=== PATIENT | female | born 1985 | race Caucasian/White ===

== ENCOUNTER 2016-04-29 19:28 | Outpatient (CLI) | payer OTHER ==
[2016-04-29 20:35] VITALS: BP 111/68
== END 2016-04-29 22:06 | disposition home or self-care (01) ==
LOC: TRG 19:28
PROVIDERS: ATTEND Specialist
DX: O36.8130 Decreased fetal movements, third trimester, not applicable or unspecified (principal); O62.0 Primary inadequate contractions; O77.9 Labor and delivery complicated by fetal stress, unspecified; Z3A.37 37 weeks gestation of pregnancy
CPT/HCPCS: 59025

== ENCOUNTER 2016-05-02 04:52 | Inpatient (IN) | payer OTHER ==
[2016-05-02] MEDS ORDERED: LACTATED RINGERS 2,000 ML ONE (05:05)
[2016-05-02] MEDS ORDERED: LACTATED RINGERS 1,000 ML IV SCH (06:00)
[2016-05-02 06:28] LABS: Basophils % (Auto) 0.2 % (0.0-1.8); Eosinophils % (Auto) 0.6 % (0.0-4.3); Hematocrit 35.1 % (30.3-42.9); Hemoglobin 11.6 gm/dl (10.1-14.3); Mean Corpuscular HGB Conc 33 % (30-34); Mean Corpuscular Hemoglobin 29 pg (28-32); Mean Corpuscular Volume 89 fl (79-97); Platelet Count 277 K/mm3 (140-440); Red Blood Count 3.94 M/mm3 (3.65-5.03); Red Cell Distribution Width 14.1 % (13.2-15.2); White Blood Count 9.9 K/mm3 (4.5-11.0)
[2016-05-02] MEDS ORDERED: REGLAN ONE (06:35)
[2016-05-02] MEDS ORDERED: ANCEF/STERILE WATER 2 GM/20 ML 20 ML IV ONE (06:35)
[2016-05-02] MEDS ORDERED: PEPCID IV ONE ×2 (06:36→09:07)
[2016-05-02] MEDS ORDERED: PITOCin/NS 20 UNIT/1000ML DRIP 1,000 ML IV ONE ×2 (06:37→09:04)
[2016-05-02] MEDS ORDERED: BICITRA ONE (07:12)
--- NOTE | 2016-05-02 07:23 | Anesthesia Consultation ---
Anesthesia Consult and Med Hx Date of service: 05/02/16 - Airway Anesthetic Teeth Evaluation: Good ROM Head & Neck: Adequate Mental/Hyoid Distance: Adequate Mallampati Class: Class II Intubation Access Assessment: Probably Good - Pulmonary Exam CTA: Yes - Cardiac Exam Cardiac Exam: RRR - Pre-Operative Health Status ASA Pre-Surgery Classification: ASA2 Proposed Anesthetic Plan: Epidural, Spinal - Pulmonary Hx Asthma: No COPD: No Hx Pneumonia: No - Cardiovascular System Hx Hypertension: No - Central Nervous System Hx Seizures: No Hx Psychiatric Problems: No - Endocrine Hx Renal Disease: No Hx End Stage Renal Disease: No Hx Hypothyroidism: No Hx Hyperthyroidism: No - Hematic Hx Anemia: No Hx Sickle Cell Disease: No - Other Systems Hx Alcohol Use: No
--- NOTE | 2016-05-02 07:23 | Anesthesia Day of Surgery ---
Anesthesia Day of Surgery - Day of Surgery Patient Examined: Yes Patient H&P Reviewed: Yes Patient is NPO: Yes
[2016-05-02] MEDS ORDERED: MORPHINE ONE (07:31)
[2016-05-02] MEDS ORDERED: WATER FOR IRRIG STERILE IR ONE (07:54)
[2016-05-02] MEDS ORDERED: NACL 0.9% IR ONE (07:54)
[2016-05-02] MEDS ORDERED: ZOFRAN ONE (08:05)
[2016-05-02] MEDS ORDERED: ZOFRAN IV PRN ×2 (08:46→10:29)
[2016-05-02] MEDS ORDERED: PHENERGAN PO PRN (08:46)
[2016-05-02] MEDS ORDERED: NARCAN 0.4 MG/1 ML IV PRN ×2 (08:46→10:29)
[2016-05-02] MEDS ORDERED: PHENERGAN PR PRN (08:46)
--- NOTE | 2016-05-02 08:50 | Post Anesthesia Evaluation ---
- Post Anesthesia Evaluation Patient Participated: Yes Airway Patent: Yes Stable Respiratory Function: Yes Nausea/Vomiting: No Temp > 96.8F: Yes Pain Manageable: Yes Adequeate Hydration: Yes Anesthesia Complications: No Block Receding Appropriately: Yes Patient on Ventilator: No
--- NOTE | 2016-05-02 08:52 | History and Physical Report ---
History of Present Illness Date of examination: 05/02/16 Date of admission: 05/02/16 06:45 Chief complaint: I'm in labor History of present illness: Patient is a 30 year old female who is non Wolof speaking, and presents to L&D with c/o contractions. While in triage, patient had cervical change. She was scheduled for repeat on 05/18/16. She received care but records are not available at this time Past History Past Medical History: no pertinent history Past Surgical History: section - Obstetrical History Expected Date of Delivery: 05/24/16 Actual Gestation: 36 Week(s) 6 Day(s) : 5 Medications and Allergies Allergies Allergy/AdvReac Type Severity Reaction Status Date / Time No Known Allergies Allergy Verified 06/15/14 05:01 Home Medications Medication Instructions Recorded Confirmed Last Taken Type Ferrous Sulfate [Feosol 325 MG tab] 325 mg PO BID #60 tablet 06/15/14 Unknown Rx HYDROcodone/APAP 5-325 [[place] 1 each PO Q6HR PRN #30 tablet 06/15/14 Unknown Rx 5-325 mg TAB] Ibuprofen [Motrin] 800 mg PO Q8H PRN #30 tablet 06/15/14 Unknown Rx Tmb205/Iron Fumarate/FA/Dss 1 each PO QDAY #30 tablet 06/15/14 Unknown Rx [ 19 Tablet] Active Meds: Active Medications Lactated Ringer's (Lactated Ringers) 1,000 mls @ 125 mls/hr IV DIRECT MAMTA Review of Systems All systems: negative Genitourinary: leakage of fluid, contractions - Vital Signs Vital signs: Vital Signs Pulse Pulse Ox 108 H 98 05/02/16 05:04 05/02/16 05:04 Temp Pulse Resp BP Pulse Ox 98.4 F 108 H 18 103/71 99 05/02/16 05:15 05/02/16 05:15 05/02/16 05:15 05/02/16 05:15 05/02/16 05:15 - Physical Exam Breasts: Positive: deferred Cardiovascular: Regular rate, Normal S1, Normal S2 Lungs: Positive: Clear to auscultation Abdomen: Positive: normal appearance, soft, normal bowel sounds Genitourinary (Female): Positive: normal external genitalia, normal perenium Uterus: Positive: normal size, normal contour - Obstetrical FHR: auscultation normal Cervical Dilatation: 3 Cervical Effacement Percentage: 90 Uterine Contraction Pattern: Regular Uterine Tone Measurement Phase: Contraction Uterine Contraction Intensity: Moderate Results Result Diagrams: 05/02/16 05:35 Abnormal lab results 05/02/16 Range/Units 05:35 [place] % (Auto) 7.7 H (0.0-7.3) % All other labs normal. Assessment and Plan IUP at 36.6 weeks in active labor but repeat . Patient also has tubal papers that are signed and on the chart. Will proceed with repeat x 5 with tubal ligation.
[2016-05-02] MEDS ORDERED: LANSINOH TP PRN (10:29)
[2016-05-02] MEDS ORDERED: SODIUM CHLORIDE FLUSH SYRINGE 10 ML IV NR (10:29)
[2016-05-02] MEDS ORDERED: MORPHINE IV PRN (10:29)
[2016-05-02] MEDS ORDERED: TUCKS PAD TP PRN (10:29)
[2016-05-02] MEDS ORDERED: PITOCin/NS 20 UNIT/1000ML DRIP 1,000 ML IV SCH (10:29)
[2016-05-02] MEDS: TORADOL IV PRN ×2 (10:41→17:38)
[2016-05-02] MEDS: PRENATAL VITAMIN PO SCH (10:42)
[2016-05-02] MEDS: LACTATED RINGERS 1,000 ML IV SCH ×2 (11:00→20:30)
--- NOTE | 2016-05-02 13:02 | Operative Report ---
PREOPERATIVE DIAGNOSES: 1. Previous section. 2. Undesired fertility. POSTOPERATIVE DIAGNOSIS: 1. Previous section. 2. Undesired fertility. PROCEDURE: Repeat low-transverse section with bilateral tubal ligation. SURGEON: Cherise Brewer MD ANESTHESIA: Spinal epidural. ESTIMATED BLOOD LOSS: 600 mL. IV FLUIDS: 1000 mL. URINE OUTPUT: 200 mL clear at the end of the procedure. FINDINGS: Viable male , weighed 7 pounds 2 ounces, 3243 g, Apgars 8 and 9. DESCRIPTION OF PROCEDURE: The patient was taken to the OR with IV running in place. She was appropriately identified as herself. She was initially scheduled for a section on 05/18/2016; however, went into labor on 05/02/2016. A spinal epidural was placed without difficulty. She was then prepped and draped in normal sterile fashion. A Jasso catheter was inserted. The Allis test confirmed adequate anesthesia. A Pfannenstiel incision was then made with the scalpel just above the area of her previous incision and carried through the underlying fascia using the scalpel and the Bovie. The fascia was incised longitudinally as there were multiple layers adhesed together. Once at the muscle layer, the fascia was dissected from the underlying muscles with mostly sharp dissection. This was done superiorly and inferiorly. The muscles were entered in two or three small defects superiorly. Rectus muscles were incised using the Bazzi scissors. Once inside the peritoneal cavity, large vessels were traversing the area between the bladder and the uterine wall. Therefore, the decision was made to make a high transverse uterine incision just above the typical original lower uterine segment. Of note, this area was also exceedingly thin and it looked to be entered into quite easily. Once the hysterotomy incision was created with the scalpel, the amniotic sac was identified. Once identified, the uterine incision was extended using the surgeon's fingers. The sac was ruptured for clear fluid and the was then delivered atraumatically. The nuchal cord x1. Mouth was suctioned as well as his nose. The cord was clamped and cut and he was handed to the awaiting NICU personnel. The placenta was delivered manually using the surgeon's hands. The uterus was then exteriorized and cleared of all clots and debris. The hysterotomy incision was then closed in a running fashion using 0 chromic catgut. Once hemostasis was assured on the uterine incision, attention was turned to the patient's tubes. The right and left tubes were then ligated with a Leakey tubal ligation. Pieces of the tube were handed off to pathology. The abdomen and pelvis were then copiously irrigated with warm normal saline. The uterus was then replaced into the abdominal cavity. The muscles were reapproximated in the midline. The fascia was closed in a running fashion using 0 Vicryl. Subcutaneous tissue was then copiously irrigated and the skin was closed with jethro. The sponge, lap, needle, and instrument counts were correct x2. Following at the end of the procedure, was taken to recovery in stable condition. JOB# [id number] MARINA/CHELSEY
[2016-05-02] MEDS: MYLICON PO PRN (17:43)
[2016-05-02 21:43] LABS: Hematocrit 28.7 % (30.3-42.9); Hemoglobin 9.6 gm/dl (10.1-14.3)
[2016-05-03] MEDS: MYLICON PO PRN (00:10)
[2016-05-03] MEDS: TORADOL IV PRN (00:10)
[2016-05-03] MEDS: PERCOCET 5/325 PO PRN ×4 (03:00→22:23)
--- NOTE | 2016-05-03 06:18 | Progress Note ---
Assessment and Plan pod 1 s/p repeat c/s, doing well. will start iron Subjective - Subjective Date of service: 05/03/16 Principal diagnosis: POD 1 s/p repeat c/s Interval history: routine pp care, anemia noted from the blood loss from surgery Patient reports: appetite normal, voiding normally, pain well controlled : doing well Objective - Vital Signs Latest vital signs: Vital Signs Temp Pulse Pulse Resp BP BP 05/03/16 03:00 18 05/03/16 00:47 98.5 F 81 20 96/53 05/03/16 00:10 20 05/02/16 20:08 98.1 F 76 20 94/53 05/02/16 17:38 18 05/02/16 15:31 98.0 F 74 18 92/52 05/02/16 14:16 18 05/02/16 13:13 97.6 F 75 20 89/53 05/02/16 10:41 18 05/02/16 10:20 97.4 F L 75 18 108/60 05/02/16 09:38 82 14 104/68 05/02/16 09:23 88 14 108/64 05/02/16 09:08 91 H 17 111/62 05/02/16 08:53 93 H 16 105/67 05/02/16 08:48 82 16 112/68 05/02/16 08:43 98 H 18 103/52 05/02/16 08:38 97.5 F L 100 H 18 111/61 Intake and Output 05/02/16 05/02/16 05/03/16 14:59 22:59 06:59 Intake Total 5758 860 Output Total 1450 750 Balance 4308 110 Intake: IV 5278 500 Lactated Ringers 2,000 ml 1000 As .ROUTE .STK-MED ONE Rx#:[id number] Lactated Ringers 1,000 ml 800 @ 125 mls/hr IV DIRECT MAMTA Rx#:[id number] Ancef/Sterile Water 2 gm/ 20 20 ml 20 ml As IV .STK- MED ONE Rx#:[id number] PITOCin/NS 20 UNIT/1000ML 1000 DRIP 1,000 ML As IV .STK -MED ONE Rx#:[id number] PITOCin/NS 20 UNIT/1000ML 83 DRIP 1,000 ML As IV .STK -MED ONE Rx#:[id number] Lactated Ringers 1,000 ml 375 500 @ 125 mls/hr IV DIRECT MAMTA Rx#:[id number] Oral 480 120 Intake, Free Water 240 Output: Urine 1450 750 Indwelling Catheter 1100 750 Other: Total, Intake Amount 120 120 Total, Output Amount 1100 750 Voiding Method Indwelling Catheter Indwelling Catheter Estimated Blood Loss 600 - Exam Breasts: Present: deferred Cardiovascular: Present: Regular rate, Normal S1, Normal S2 Lungs: Present: Clear to auscultation Abdomen: Present: normal appearance, soft Vulva: both: normal Uterus: Present: normal, firm Extremities: Present: normal Incision: Present: normal, dry, intact - Labs Labs: Abnormal lab results 05/02/16 05/02/16 Range/Units 05:35 21:15 Hgb 9.6 L (10.1-14.3) gm/dl Hct 28.7 L D (30.3-42.9) % [place] % (Auto) 7.7 H (0.0-7.3) %
[2016-05-03] MEDS: PRENATAL VITAMIN PO SCH (09:46)
[2016-05-03] MEDS: FEOSOL PO SCH ×2 (09:46→22:23)
[2016-05-03] MEDS: MOTRIN PO PRN ×2 (09:46→15:40)
[2016-05-04] MEDS: MOTRIN PO PRN ×2 (05:18→12:07)
[2016-05-04] MEDS ORDERED: BOOSTRIX IM ONE (06:00)
[2016-05-04] MEDS: PERCOCET 5/325 PO PRN ×2 (06:31→12:07)
--- NOTE | 2016-05-04 06:51 | Progress Note ---
Assessment and Plan pod 2 s/p repeat c/s. Plan d/c home this pm Subjective - Subjective Date of service: 05/04/16 Principal diagnosis: POD 2 s/p repeat c/s Interval history: routine pp care, anemia noted from the blood loss from surgery Patient reports: appetite normal, voiding normally, pain well controlled [place]: doing well Objective - Vital Signs Latest vital signs: Vital Signs Temp Pulse Pulse Resp BP 05/03/16 23:45 98.0 F 77 20 110/74 05/03/16 16:13 98.3 F 97 H 16 95/58 05/03/16 07:31 98.4 F 80 20 100/50 Intake and Output 05/03/16 05/03/16 05/04/16 14:59 22:59 06:59 Intake Total 990 120 120 Balance 990 120 120 Intake: IV 750 Lactated Ringers 1,000 ml 750 @ 125 mls/hr IV DIRECT MAMTA Rx#:[id number] Oral 240 120 120 Other: Total, Intake Amount 120 120 120 # Voids Void 1 1 1 - Exam Breasts: Present: deferred Cardiovascular: Present: Regular rate, Normal S1, Normal S2 Lungs: Present: Clear to auscultation Abdomen: Present: normal appearance, soft Vulva: both: normal Uterus: Present: normal, firm Extremities: Present: normal Deep Tendon Reflex Grade: Normal +2 Incision: Present: normal, dry, intact
--- NOTE | 2016-05-04 06:54 | Discharge Summary ---
Providers - Providers Date of Admission: 05/02/16 06:45 Date of discharge: 05/04/16 Attending physician: ANDRA CATHERINE Primary care physician: ANDRA CATHERINE Hospitalization Reason for admission: active labor Delivery: Procedure: section, repeat low transverse Procedure details: s/p repeat lstcs Episiotomy: none Laceration: none Incision: normal, dry, intact Other procedures: none complications: none Discharge diagnosis: IUP at term delivered baby: male Hospital course: routone post op care, iron started for anemia. afebrile though out course Condition at discharge: Good Disposition: DISCHARGED TO HOME OR SELFCARE - Discharge Diagnoses (1) S/P section Status: Acute Plan - Discharge Medications Prescriptions: Ferrous Sulfate [Feosol 325 MG tab] 325 mg PO BID #60 tablet Ibuprofen [Motrin 800 MG tab] 800 mg PO Q8HR PRN #30 tablet PRN Reason: Pain oxyCODONE /ACETAMINOPHEN [Percocet 5/325] 1 tab PO Q6HR PRN #30 tablet PRN Reason: Pain - Provider Discharge Summary Activity: routine, no sex for 6 weeks, no heavy lifting 4 weeks, no strenuous exercise Diet: routine Instructions: routine Additional instructions: [] Smoking cessation referral if applicable(refer to patient education folder for contact #) [] Refer to [facility]'s [facility] Booklet Call your doctor immediately for: * Fever > 100.5 * Heavy vaginal bleeding ( >1 pad per hour) * Severe persistent headache * Shortness of breath * Reddened, hot, painful area to leg or breast * Drainage or odor from incision. * Keep incision clean and dry at all times and follow doctor's instructions regarding bathing/showering - Follow up plan Follow up: ANDRA CATHERINE MD [Primary Care Provider] - 14 Days
[2016-05-04] MEDS: FEOSOL PO SCH (10:39)
[2016-05-04] MEDS: PRENATAL VITAMIN PO SCH (10:39)
[2016-05-04] MEDS ORDERED: FLUARIX QUAD 2016-2017(36 MOS+) IM ONE (12:00)
[2016-05-04 18:58] VITALS: BP 109/58
== END 2016-05-04 16:25 | disposition home or self-care (01) | DRG 766 ==
LOC: TRG 04:52 → APU 06:45 → TRG 06:45 → OB 10:18
PROVIDERS: ADMIT Specialist; ATTEND Specialist
PROC: 10D00Z1 Extraction of Products of Conception, Low, Open Approach (ICD-10-PCS; principal; 2016-05-02)
PROC: 0UT70ZZ Resection of Bilateral Fallopian Tubes, Open Approach (ICD-10-PCS; 2016-05-02)
DX: O34.211 Maternal care for low transverse scar from previous cesarean delivery (principal); Z3A.36 36 weeks gestation of pregnancy; Z37.0 Single live birth
CPT/HCPCS: 36415; 85014; 85018; 85025; 86850; 86900; 86901; 88302; 90471; 90686; 90715; 99211; G0008; G0463; J0690; J1885; J2270; J2405; J2590; J2765; J7120

== ENCOUNTER 2016-05-09 08:33 | Emergency (ER) | payer OTHER ==
[2016-05-09] MEDS ORDERED: NACL 0.9% 1000 ML 1,000 ML IV ONE (09:28)
[2016-05-09 09:32] LABS: Basophils % (Auto) 0.3 % (0.0-1.8); Eosinophils % (Auto) 1.9 % (0.0-4.3); Hemoglobin 10.3 gm/dl (10.1-14.3); Mean Corpuscular HGB Conc 32 % (30-34); Mean Corpuscular Hemoglobin 29 pg (28-32); Mean Corpuscular Volume 90 fl (79-97); Platelet Count 381 K/mm3 (140-440); Red Cell Distribution Width 13.9 % (13.2-15.2); White Blood Count 7.1 K/mm3 (4.5-11.0)
[2016-05-09 09:34] LABS: Red Blood Count 3.55 M/mm3 (3.65-5.03)
[2016-05-09 10:07] LABS: Alanine Aminotransferase 46 units/L (7-56); Albumin 3.3 g/dL (3.9-5); Albumin/Globulin Ratio 1.1 %; Alkaline Phosphatase 113 units/L (35-129); Anion Gap 17 mmol/L; Bilirubin,Total 0.2 mg/dL (0.1-1.2); Blood Urea Nitrogen 13 mg/dL (7-17); Calcium 8.5 mg/dL (8.4-10.2); Carbon Dioxide 23 mmol/L (22-30); Chloride 105.7 mmol/L (98-107); Glucose 100 mg/dL (65-100); Potassium 4.1 mmol/L (3.6-5.0); Sodium 142 mmol/L (137-145); Total Protein 6.4 g/dL (6.3-8.2)
[2016-05-09 10:31] LABS: Bilirubin,Direct < 0.2 mg/dL (0-0.2)
--- NOTE | 2016-05-09 10:33 | Ultrasound Report ---
ULTRASOUND PELVIC COMPLETE ULTRASOUND TRANSVAGINAL HISTORY: Vaginal bleeding, pain, on 05/02/16. TECHNIQUE: Transabdominal and transvaginal ultrasound with color and spectral doppler interrogation. The uterus remains enlarged measuring 16 x 9 x 10 cm. No uterine fibroids. The endometrial stripe is complex and thickened measuring up to 3.4 cm. There are small cystic areas within and evidence of trace gas with ringdown artifact. The cervix is closed and measures 3 cm. The right ovary is unremarkable measuring 3.8 x 1.7 x 1.9 cm. The left ovary is not visualized. No pelvic fluid collection. IMPRESSION: uterus. Complex and thickened endometrial stripe concerning for hemorrhagic products, retained products of conception or endometritis. Please correlate with the patient.
[2016-05-09] MEDS ORDERED: ZOSYN/NS 3.375GM/50ML 50 ML IV ONE (11:30)
[2016-05-09] MEDS ORDERED: PITOCin/NS 20 UNIT/1000ML DRIP 1,000 ML IV SCH (12:00)
--- NOTE | 2016-05-09 14:23 | Emergency Department Report ---
ED Female HPI - General Chief complaint: Vaginal Bleeding Stated complaint: VAGINAL BLEEDING Time Seen by Provider: 05/09/16 09:27 Source: EMS Mode of arrival: Stretcher Limitations: No Limitations - History of Present Illness Initial comments: Patient is status post a on last Tuesday. She has been doing well. The baby has been well also. This morning she developed vaginal bleeding which was substantial in amount but stopped relatively soon. She has not been having any fever or chills. She denies any significant abdominal discomfort. She had an uncomplicated which was planned secondary to multiple prior C- sections. He is not complaining of weakness or shortness of breath at the time of my encounter. Presented to the emergency department via EMS. The nurse informed me that she had a partially soaked pad. MD Complaint: vaginal bleeding -: Sudden (this a.m. ) - Related Data Home Medications Medication Instructions Recorded Confirmed Last Taken Vit-Fe Fumar-FA [ 1 tab PO QDAY 05/02/16 05/02/16 Unknown Vitamin] Previous Rx's Medication Instructions Recorded Last Taken Type Ferrous Sulfate [Feosol 325 MG tab] 325 mg PO BID #60 tablet 05/03/16 Unknown Rx Ibuprofen [Motrin 800 MG tab] 800 mg PO Q8HR PRN #30 tablet 05/03/16 Unknown Rx oxyCODONE /ACETAMINOPHEN [Percocet 1 tab PO Q6HR PRN #30 tablet 05/03/16 Unknown Rx 5/325] Methylergonovine [Methergine] 0.2 mg PO Q6HR #7 tablet 05/09/16 Unknown Rx Allergies Allergy/AdvReac Type Severity Reaction Status Date / Time No Known Allergies Allergy Verified 06/15/14 05:01 ED Review of Systems ROS: Stated complaint: VAGINAL BLEEDING Other details as noted in HPI Constitutional: denies: chills, fever Eyes: denies: eye pain, eye discharge, vision change ENT: denies: ear pain, throat pain Respiratory: denies: cough, shortness of breath, wheezing Cardiovascular: denies: chest pain, palpitations Endocrine: no symptoms reported Gastrointestinal: denies: abdominal pain, nausea, diarrhea Genitourinary: as per HPI, other. denies: urgency, dysuria, discharge Musculoskeletal: denies: back pain, joint swelling, arthralgia Skin: denies: rash, lesions Neurological: denies: headache, weakness, paresthesias Psychiatric: denies: anxiety, depression Hematological/Lymphatic: denies: easy bleeding, easy bruising ED Past Medical Hx - Past Medical History Hx Hypertension: No Hx Congestive Heart Failure: No Hx Diabetes: No Hx Deep Vein Thrombosis: No Hx Renal Disease: No Hx Sickle Cell Disease: No Hx Seizures: No Hx Asthma: No Hx COPD: No Hx HIV: No - Surgical History Additional Surgical History: c section 1 week ago - Social History Smoking Status: Never Smoker - Medications Home Medications: Home Medications Medication Instructions Recorded Confirmed Last Taken Type Vit-Fe Fumar-FA [ 1 tab PO QDAY 05/02/16 05/02/16 Unknown History Vitamin] Ferrous Sulfate [Feosol 325 MG tab] 325 mg PO BID #60 tablet 05/03/16 Unknown Rx Ibuprofen [Motrin 800 MG tab] 800 mg PO Q8HR PRN #30 tablet 05/03/16 Unknown Rx oxyCODONE /ACETAMINOPHEN [Percocet 1 tab PO Q6HR PRN #30 tablet 05/03/16 Unknown Rx 5/325] Methylergonovine [Methergine] 0.2 mg PO Q6HR #7 tablet 05/09/16 Unknown Rx ED Physical Exam - General Limitations: No Limitations General appearance: alert, in no apparent distress - Head Head exam: Present: atraumatic, normocephalic - Eye Eye exam: Present: normal appearance - ENT ENT exam: Present: mucous membranes moist - Neck Neck exam: Present: normal inspection - Respiratory Respiratory exam: Present: normal lung sounds bilaterally. Absent: respiratory distress - Cardiovascular Cardiovascular Exam: Present: regular rate, normal rhythm. Absent: systolic murmur, diastolic murmur, rubs, gallop - GI/Abdominal GI/Abdominal exam: Present: soft, normal bowel sounds. Absent: distended, tenderness, guarding, rebound, rigid, organomegaly, mass - External exam: Present: other (no active bleeding) - Extremities Exam Extremities exam: Present: normal inspection - Back Exam Back exam: Present: normal inspection - Neurological Exam Neurological exam: Present: alert, oriented X3, CN II-XII intact. Absent: motor sensory deficit - Psychiatric Psychiatric exam: Present: normal affect, normal mood - Skin Skin exam: Present: warm, dry, intact, normal color. Absent: rash ED Course Vital Signs 05/09/16 05/09/16 09:16 09:22 Temperature 98.0 F Pulse Rate 88 Respiratory 22 Rate Blood Pressure 90/64 [Left] O2 Sat by Pulse 75 L 100 Oximetry - Reevaluation(s) Reevaluation #1: Her case was discussed in detail with Dr. Catherine the patient's marketing data specialist. We reviewed the patient's laboratory results presentation as well as ultrasound report. Dr. Catherine suggested that we give the patient some Pitocin followed by a prescription for Methergine. She will follow her up in the office. She did not believe retain products or infection although included in the radiologist differential diagnosis were reasonably likely. Therefore the patient will be treated as an outpatient. 05/09/16 14:22 05/09/16 14:24 Reevaluation #2: She was observed in the emergency department. She was actually given one dose of Zosyn prior to our consultation with OB. She remained hemodynamically stable. She went to the bathroom and stated that she had a small clot but no significant bleeding. Therefore she will be discharged to follow-up with Dr. Dickens. 05/09/16 14:26 ED Medical Decision Making - Lab Data Result diagrams: 05/09/16 09:11 05/09/16 09:31 Laboratory Results - last 24 hr 05/09/16 05/09/16 05/09/16 09:11 09:11 09:31 WBC 7.1 RBC 3.55 L Hgb 10.3 Hct 32.0 MCV 90 MCH 29 MCHC 32 RDW 13.9 Plt Count 381 Lymph % (Auto) 27.7 [place] % (Auto) 7.8 H Eos % (Auto) 1.9 Baso % (Auto) 0.3 Lymph # 2.0 [place] # 0.6 Eos # 0.1 Baso # 0.0 Seg Neutrophils % 62.3 Seg Neutrophils # 4.4 Sodium 142 Potassium 4.1 Chloride 105.7 Carbon Dioxide 23 Anion Gap 17 BUN 13 Creatinine 0.5 L Estimated GFR > 60 BUN/Creatinine Ratio 26.00 Glucose 100 Calcium 8.5 Total Bilirubin 0.2 Direct Bilirubin < 0.2 Indirect Bilirubin 0.0 AST 37 ALT 46 Alkaline Phosphatase 113 Total Protein 6.4 Albumin 3.3 L Albumin/Globulin Ratio 1.1 Blood Type A POSITIVE Antibody Screen Negative Critical care attestation.: If time is entered above; I have spent that time in minutes in the direct care of this critically ill patient, excluding procedure time. ED Disposition Clinical Impression: Vaginal bleeding, S/P section Disposition: DISCHARGED TO HOME OR SELFCARE Is pt being admited?: No Does the pt Need Aspirin: No Condition: Stable Instructions: Bleeding (ED) Additional Instructions: The Dr. Catherine in her office. Return to the emergency department any significant recurrent bleeding or fever or if you feel could have significant abdominal discomfort. Rx as directed. Prescriptions: Methylergonovine [Methergine] 0.2 mg PO Q6HR #7 tablet Referrals: PRIMARY CAREMD [Primary Care Provider] - 3-5 Days ANDRA CATHERINE MD [Staff Physician] - 24 Hours Time of Disposition: 14:29
[2016-05-09 15:05] VITALS: BP 109/59
== END 2016-05-09 15:05 | disposition home or self-care (01) ==
LOC: ED 08:33
DX: N93.9 Abnormal uterine and vaginal bleeding, unspecified (principal)
CPT/HCPCS: 36415; 76830; 76856; 80048; 80074; 85025; 86850; 86900; 86901; 96361; 96365; 96375; 99284; J2543; J2590; J7030

== ENCOUNTER 2017-09-20 05:10 | Emergency (ER) | payer SELFPAY ==
[2017-09-20 05:17] VITALS: BP 116/67
[2017-09-20 07:10] LABS: Alanine Aminotransferase 27 units/L (7-56); Albumin 4.8 g/dL (3.9-5); BUN/Creatinine Ratio 14; Blood Urea Nitrogen 7 mg/dL (7-17); Calcium 9.5 mg/dL (8.4-10.2); Hemolysis Index 0; Lipase 22 units/L (13-60)
[2017-09-20 07:11] LABS: Basophils % (Auto) 0.3 % (0.0-1.8); Eosinophils % (Auto) 0.4 % (0.0-4.3); Hematocrit 32.1 % (30.3-42.9); Hemoglobin 10.8 gm/dl (10.1-14.3); Lymphocytes # (Auto) 1.4 K/mm3 (1.2-5.4); Lymphocytes % (Auto) 13.7 % (13.4-35.0); Mean Corpuscular HGB Conc 34 % (30-34); Mean Corpuscular Hemoglobin 26 pg (28-32); Mean Corpuscular Volume 78 fl (79-97); Monocytes # (Auto) 0.8 K/mm3 (0.0-0.8); Monocytes % (Auto) 7.5 % (0.0-7.3); Platelet Count 384 K/mm3 (140-440); Red Blood Count 4.11 M/mm3 (3.65-5.03); Red Cell Distribution Width 15.8 % (13.2-15.2)
[2017-09-20 07:50] LABS: Bacteria,Urine 4+ /HPF (Negative); Bilirubin,Urine NEG (Negative); Blood,Urine MOD (Negative); Color,Urine Yellow (Yellow); Mucus,Urine 1+ /HPF; Urobilinogen,Urine < 2.0 mg/dL (<2.0)
[2017-09-20 07:53] LABS: WBC,Urine > 182.0 /HPF (0.0-6.0)
--- NOTE | 2017-09-20 10:31 | Emergency Department Report ---
ED Abdominal Pain HPI - General Chief Complaint: Abdominal Pain Stated Complaint: ABDOMINAL PAIN Time Seen by Provider: 09/20/17 10:15 Source: patient Mode of arrival: Ambulatory Limitations: No Limitations - History of Present Illness Initial Comments: Patient is 31 years old female with no significant past medical history. Patient presented to the ER complaining off right flank pain and suprapubic pain for the last 2 days. Patient also stated that she didn't having trouble with urination, burning sensation and frequency. Patient denied any fever or vomiting that she stated that she's been nauseated. MD Complaint: abdominal pain, flank pain Radiation: none Migration to: no migration Quality: sharp Associated Symptoms: nausea - Related Data Home Medications Medication Instructions Recorded Confirmed Last Taken Vit-Fe Fumar-FA [ 1 tab PO QDAY 05/02/16 05/02/16 Unknown Vitamin] Previous Rx's Medication Instructions Recorded Last Taken Type Ferrous Sulfate [Feosol 325 MG tab] 325 mg PO BID #60 tablet 05/03/16 Unknown Rx Ibuprofen [Motrin 800 MG tab] 800 mg PO Q8HR PRN #30 tablet 05/03/16 Unknown Rx oxyCODONE /ACETAMINOPHEN [Percocet 1 tab PO Q6HR PRN #30 tablet 05/03/16 Unknown Rx 5/325] Methylergonovine [Methergine] 0.2 mg PO Q6HR #7 tablet 05/09/16 Unknown Rx Allergies Allergy/AdvReac Type Severity Reaction Status Date / Time No Known Allergies Allergy Verified 06/15/14 05:01 ED Review of Systems ROS: Stated complaint: ABDOMINAL PAIN Other details as noted in HPI Comment: All other systems reviewed and negative Cardiovascular: denies: chest pain, palpitations Gastrointestinal: abdominal pain, nausea. denies: vomiting, diarrhea, constipation, hematemesis Genitourinary: urgency, dysuria, frequency Neurological: denies: headache, weakness ED Past Medical Hx - Past Medical History Previous Medical History?: No Hx Hypertension: No Hx Congestive Heart Failure: No Hx Diabetes: No Hx Deep Vein Thrombosis: No Hx Renal Disease: No Hx Sickle Cell Disease: No Hx Seizures: No Hx Asthma: No Hx COPD: No Hx HIV: No - Surgical History Past Surgical History?: Yes Additional Surgical History: Csection 2017 - Social History Smoking Status: Never Smoker - Medications Home Medications: Home Medications Medication Instructions Recorded Confirmed Last Taken Type Vit-Fe Fumar-FA [ 1 tab PO QDAY 05/02/16 05/02/16 Unknown History Vitamin] Ferrous Sulfate [Feosol 325 MG tab] 325 mg PO BID #60 tablet 05/03/16 Unknown Rx Ibuprofen [Motrin 800 MG tab] 800 mg PO Q8HR PRN #30 tablet 05/03/16 Unknown Rx oxyCODONE /ACETAMINOPHEN [Percocet 1 tab PO Q6HR PRN #30 tablet 05/03/16 Unknown Rx 5/325] Methylergonovine [Methergine] 0.2 mg PO Q6HR #7 tablet 05/09/16 Unknown Rx ED Physical Exam - General Limitations: No Limitations General appearance: alert, in no apparent distress - Head Head exam: Present: atraumatic, normocephalic, normal inspection - Neck Neck exam: Present: normal inspection, full ROM. Absent: tenderness, meningismus, lymphadenopathy - Respiratory Respiratory exam: Present: normal lung sounds bilaterally - Cardiovascular Cardiovascular Exam: Present: regular rate, normal rhythm, normal heart sounds - GI/Abdominal GI/Abdominal exam: Present: soft, tenderness (suprapubic tenderness), other ( negative McBurney sign). Absent: distended, guarding, rebound, organomegaly, mass, bruit, pulsatile mass, hernia - Extremities Exam Extremities exam: Present: normal inspection, full ROM, normal capillary refill - Back Exam Back exam: Present: normal inspection, full ROM. Absent: tenderness, CVA tenderness (R), CVA tenderness (L), muscle spasm, paraspinal tenderness, vertebral tenderness - Neurological Exam Neurological exam: Present: alert, oriented X3, CN II-XII intact, normal gait - Skin Skin exam: Present: warm, intact, normal color ED Course Vital Signs 09/20/17 09/20/17 05:11 05:52 Temperature 98.6 F 98.6 F Pulse Rate 115 H 109 H Respiratory 18 Rate Blood Pressure 116/67 116/67 O2 Sat by Pulse 97 98 Oximetry ED Medical Decision Making - Lab Data Result diagrams: 09/20/17 06:09 09/20/17 06:09 - Medical Decision Making Patient's symptoms is most likely due to urinary tract infection. No clinical evidence of acute appendicitis. Patient will be treated with ciprofloxacin for 7 days and Zofran for nausea and advised the patient to follow-up with her primary care physician in the next 2-3 days and to return to the ER if her symptoms are not improving. Critical care attestation.: If time is entered above; I have spent that time in minutes in the direct care of this critically ill patient, excluding procedure time. ED Disposition Clinical Impression: Abdominal pain, UTI (urinary tract infection) Disposition: TO HOME OR SELFCARE Is pt being admited?: No Condition: Stable Instructions: Abdominal Pain (ED), Urinary Tract Infection in Women (ED) Referrals: PRIMARY CARE, [Primary Care Provider] - 3-5 Days
== END 2017-09-20 10:48 | disposition home or self-care (01) ==
LOC: ED 05:10
DX: N39.0 Urinary tract infection, site not specified (principal); R10.30 Lower abdominal pain, unspecified
CPT/HCPCS: 36415; 80053; 81001; 83690; 84703; 85025